=== PATIENT | male | born 1970 | race Caucasian/White ===

== ENCOUNTER 2017-10-07 09:52 | Inpatient (IN) | payer BC, OTHER ==
[~2017-10-07] VITALS: Ht 167.6 cm; Wt 79.4 kg
[2017-10-07 10:25] LABS: Basophils # (auto) 0.1 uL; Eosinophils # (auto) 0.1 uL; Mean Corpuscular Hemoglobin 24.7 pg (28.0-32.0); Monocytes # (auto) 0.9 uL; Neutrophils % (auto) 78.8 % (37.0-80.0); Red Cell Distribution Width 13.6 % (11.8-14.3)
[2017-10-07 10:26] LABS: Basophils % (auto) 0.7 % (0.0-2.0); Eosinophils % (auto) 0.9 % (0.0-7.0); Hematocrit 46.8 % (41.0-53.0); Hemoglobin 15.7 g/dL (13.5-17.5); Lymphocytes # (auto) 1.7 uL; Lymphocytes % (auto) 12.8 % (10.0-50.0); Mean Corpuscular Hgb Conc. 33.5 g/dL (32.0-36.0); Mean Corpuscular Volume 73.7 fL (80.0-100.0); Mean Platelet Volume 7.5 fL (6.9-10.8); Monocytes % (auto) 6.8 % (0.0-12.0); Neutrophils # (auto) 10.4 uL; Nucleated Red Blood Cells % 0.2 %; Platelet Count (auto) 277 10^3/uL (140-450); White Blood Cell 13.2 10^3/uL (4.4-10.8)
[2017-10-07] MEDS ORDERED: NITROGLYCERIN 0.4 MG SL TAB SL ONE (10:45)
[2017-10-07] MEDS ORDERED: ASPirin 325 MG TAB PO ONE (10:45)
[2017-10-07 10:54] LABS: Alkaline Phosphatase 49 U/L (45-117); Anion Gap 7 (5-15); Aspartate Aminotransferase 19 U/L (15-37); BUN/Creatinine Ratio 16.7; Bilirubin, Total 0.6 mg/dL (0.2-1.0); Blood Urea Nitrogen 13 mg/dL (7-18); Calcium 8.9 mg/dL (8.5-10.1); Carbon Dioxide 30 mmol/L (21-32); Chloride 102 mmol/L (98-107); GFR African American 139 mL/min; GFR Non-African American 115 mL/min; Glucose 132 mg/dL (74-106); Magnesium 2.4 mg/dL (1.6-2.6); Potassium 3.1 mmol/L (3.5-5.1); Sodium 139 mmol/L (136-145); Total Protein 7.8 g/dL (6.4-8.2)
[2017-10-07] MEDS ORDERED: LORazepam 0.5 MG TAB PO ONE (11:15)
[2017-10-07] MEDS ORDERED: MORPHINE SULF INJ 2 MG/ML SYRINGE 1ML IV PRN ×2 (12:15)
[2017-10-07] MEDS ORDERED: LORazepam 0.5 MG TAB PO PRN (12:15)
[2017-10-07] MEDS ORDERED: ACETAMINOPHEN 325 MG TAB PO PRN (12:15)
[2017-10-07] MEDS ORDERED: ONDANSETRON HCL 4 MG/2 ML VIAL IV PRN (12:15)
[2017-10-07] MEDS ORDERED: ZOLPIDEM TARTRATE 5 MG TAB PO PRN (12:15)
[2017-10-07] MEDS ORDERED: NITROGLYCERIN 0.4 MG SL TAB SL PRN ×2 (12:15)
[2017-10-07] MEDS ORDERED: POTASSIUM CHLORIDE 8 MEQ TAB PO ONE (12:30)
[2017-10-07] MEDS ORDERED: DEXTROSE (50%) 50ML SYRG IV PRN (12:30)
[2017-10-07] MEDS ORDERED: cloNIDine HCL 0.1 MG TAB PO PRN (12:30)
[2017-10-07] MEDS ORDERED: CARVEDILOL 3.125 MG TAB PO ONE (12:30)
[2017-10-07] MEDS ORDERED: CLOPIDOGREL BISULFATE 75 MG TAB PO ONE (12:45)
[2017-10-07 13:51] LABS: B-Type Natriuretic Peptide 11.3 pg/mL (0-100)
[2017-10-07] MEDS: SODIUM CHLOR 0.9% PF (SALINE LOCK) 10ML VIAL IV SCH ×2 (14:01→21:59)
[2017-10-07 14:04] LABS: Temperature: 22.1 C (20.0-25.0)
[2017-10-07] MEDS: InsuLIN REG 1unit/0.01ml Soln (100units/ml) SC SCH ×2 (17:00→22:00)
[2017-10-07] MEDS: ACCU-CHEK COMFORT CURVE STRIP VI SCH ×2 (17:09→21:59)
[2017-10-07 21:20] VITALS: BP 146/98
[2017-10-07] MEDS ORDERED: CHOL20007 PO (21:52)
[2017-10-07] MEDS ORDERED: CYA100I IM (21:52)
[2017-10-07] MEDS ORDERED: CARVEDILOL 3.125 MG TAB PO SCH (22:00)
[2017-10-07] MEDS ORDERED: ENALAPRIL MALEATE 2.5 MG TAB PO SCH (22:00)
[2017-10-07] MEDS: ATORVASTATIN 20 MG TAB PO SCH (22:13)
[2017-10-08 05:49] VITALS: BP 143/102
[2017-10-08] MEDS: SODIUM CHLOR 0.9% PF (SALINE LOCK) 10ML VIAL IV SCH ×3 (05:58→21:42)
[2017-10-08 06:08] LABS: Eosinophils # (auto) 0.3 uL; Mean Platelet Volume 7.3 fL (6.9-10.8)
[2017-10-08] MEDS: InsuLIN REG 1unit/0.01ml Soln (100units/ml) SC SCH (06:09)
[2017-10-08] MEDS: ACCU-CHEK COMFORT CURVE STRIP VI SCH (06:09)
[2017-10-08 06:11] LABS: Basophils # (auto) 0.2 uL; Basophils % (auto) 2.1 % (0.0-2.0); Eosinophils % (auto) 2.8 % (0.0-7.0); Hematocrit 45.4 % (41.0-53.0); Hemoglobin 15.2 g/dL (13.5-17.5); Lymphocytes # (auto) 1.5 uL; Lymphocytes % (auto) 16.4 % (10.0-50.0); Mean Corpuscular Hemoglobin 25.1 pg (28.0-32.0); Mean Corpuscular Hgb Conc. 33.6 g/dL (32.0-36.0); Mean Corpuscular Volume 74.8 fL (80.0-100.0); Monocytes # (auto) 0.6 uL; Monocytes % (auto) 6.6 % (0.0-12.0); Neutrophils # (auto) 6.6 uL; Neutrophils % (auto) 72.1 % (37.0-80.0); Nucleated Red Blood Cells % 0.3 %; Platelet Count (auto) 268 10^3/uL (140-450); Red Cell Distribution Width 13.7 % (11.8-14.3); White Blood Cell 9.2 10^3/uL (4.4-10.8)
[2017-10-08 06:33] LABS: Calcium 8.9 mg/dL (8.5-10.1); Magnesium 2.5 mg/dL (1.6-2.6); Potassium 3.8 mmol/L (3.5-5.1)
[2017-10-08 06:35] LABS: Albumin 3.6 g/dL (3.4-5.0)
[2017-10-08 06:39] LABS: Bilirubin, Total 0.8 mg/dL (0.2-1.0); Total Protein 7.3 g/dL (6.4-8.2)
[2017-10-08 09:00] VITALS: BP 153/106
[2017-10-08 09:03] LABS: BUN/Creatinine Ratio 16.9
[2017-10-08] MEDS ORDERED: HCTZ 25 MG TAB PO SCH (10:00)
[2017-10-08] MEDS ORDERED: LISINOPRIL 10 MG TAB PO SCH (10:00)
[2017-10-08] MEDS ORDERED: CHOLECALCIFEROL (VITD3) 1,000 UNIT TAB PO SCH (10:00)
[2017-10-08] MEDS ORDERED: CLOPIDOGREL BISULFATE 75 MG TAB PO SCH (10:00)
[2017-10-08] MEDS ORDERED: CYANOCOBALAMIN 500 MCG TAB PO SCH (10:00)
[2017-10-08] MEDS ORDERED: METOPROLOL SUCCINATE XL 50 MG TAB PO ONE (12:15)
[2017-10-08 13:00] VITALS: BP 158/114
[2017-10-08] MEDS ORDERED: LISINOPRIL 10 MG TAB PO ONE (13:15)
[2017-10-08] MEDS: DOCUSATE SOD 100 MG CAP PO SCH (13:42)
[2017-10-08] MEDS: ASPirin 81 mg TAB PO SCH (13:44)
[2017-10-08 17:00] VITALS: BP 142/104
[2017-10-08] MEDS: ATORVASTATIN 20 MG TAB PO SCH (21:42)
[2017-10-08 22:00] VITALS: BP 138/97
[2017-10-09 05:04] VITALS: BP 145/83
[2017-10-09] MEDS: SODIUM CHLOR 0.9% PF (SALINE LOCK) 10ML VIAL IV SCH (05:34)
[2017-10-09 08:32] VITALS: BP 134/88
[2017-10-09] MEDS ORDERED: METOPROLOL SUCCINATE XL 50 MG TAB PO SCH (10:00)
[2017-10-09] MEDS ORDERED: LISINOPRIL 20 MG TAB PO SCH (10:00)
[2017-10-09] MEDS: DOCUSATE SOD 100 MG CAP PO SCH (11:20)
[2017-10-09] MEDS: ASPirin 81 mg TAB PO SCH (11:20)
[2017-10-09 12:03] VITALS: BP 149/91
[2017-10-09 12:20] VITALS: BP 149/91
== END 2017-10-09 13:30 | disposition home or self-care (01) | DRG 305 ==
LOC: ER 09:52 → TELE 09:53 → TELE-CENTR 21:00
PROVIDERS: ADMIT Internal Medicine; ATTEND Internal Medicine
DX: I11.9 Hypertensive heart disease without heart failure (principal); E87.6 Hypokalemia; J98.11 Atelectasis; R73.9 Hyperglycemia, unspecified; Z82.49 Family history of ischemic heart disease and other diseases of the circulatory system; Z88.2 Allergy status to sulfonamides
CPT/HCPCS: 36415; 71010; 80053; 80061; 82088; 82962; 83036; 83735; 83880; 84244; 84443; 84484; 85025; 93005; 93306; 96372